=== PATIENT | female | born 1960 | race Caucasian/White ===

== ENCOUNTER 2022-10-08 17:07 | Inpatient (IN) | payer SELFPAY ==
[2022-10-08 17:56] LABS: #Lymphocytes 0.7 thou/uL (1.20-3.40); #Monocytes 0.7 thou/uL (0.11-0.59); %Eosinophils 0.3 % (0.0-10.0); %Lymphocytes 4.4 % (21.0-51.0); %Monocytes 4.5 % (0.0-10.0); %Neutrophils 90.8 % (42.0-75.0); Hemoglobin 14.6 g/dL (12.0-16.0); Mean Corpuscular HGB CONC 33.2 g/dL (32.0-36.0); Mean Corpuscular Hemoglobin 30.8 pg (27.0-31.0); Mean Corpuscular Volume 92.8 fl (78.0-98.0); Mean Platelet Volume 7.2 fL (7.4-10.4); Platelet Count 268 10x3/uL (130-400); RBC Distribution Width 11.4 % (11.5-14.5); Red Blood Cell (RBC) Count 4.74 mill/uL (4.20-5.40); White Blood Cell (WBC) Count 15.5 10x3/uL (4.8-10.8)
[2022-10-08 17:57] LABS: Actual Bicarbonate (HCO3v) 23 mEq/L (22-28); Base Excess -5.3 mEq/L (-2.0 to +3.0); Calcium, Ionized (venous) 1.16 mmol/L (1.16-1.32); Chloride (VBG) 90 mmol/L (98-106); Hemoglobin (Hb) 15.7 g/dL (11.7-16.0); Potassium (VBG) 4.76 mmol/L (3.70-5.30); Sodium 128.6 mmol/L (133-146); pH (venous) 7.24 (7.32-7.43)
[2022-10-08] MEDS ORDERED: Cefepime 2 GM VIAL ONE (18:01)
[2022-10-08 18:03] LABS: Bilirubin Negative (Negative); Blood, Urine Negative (Negative); Clarity Clear (Clear); Glucose, Urine (Dipstick) Greater than 1000 mg/dL (Negative); Ketone, Urine Trace mg/dL (Negative); Leukocyte Negative Leu/uL (Negative); Nitrite Negative (Negative); Protein, Urine (Dipstick) Negative (Neg-Trace); Specific Gravity, Urine 1.029 (1.002-1.036); Urobilinogen Normal mg/dL (Less than 2); pH, Urine 5.5 (5.0-9.0)
[2022-10-08 18:08] LABS: CK (CPK) 83 U/L (29-168); Lipase 56 U/L (8-78); Magnesium 1.9 mg/dL (1.6-2.6)
[2022-10-08 18:24] LABS: ALT (SGPT) 31 U/L (8-55); AST (SGOT) 25 U/L (5-34); Albumin 4.3 g/dL (3.4-4.8); Alkaline Phosphatase 157 U/L (40-110); Anion Gap 22 mmol/L (10-20); BUN (Urea Nitrogen) 12 mg/dL (9.8-20.1); Bilirubin, Total 0.7 mg/dL (0.2-1.2); Calc. Creatinine Clearance 0 mL/min (70-130); Carbon Dioxide 21 mmol/L (23-31); Chloride 92 mmol/L (98-107); Estimated GFR 41; Globulin 3.1 g/dL (2.4-3.5); Phosphorus 3.8 mg/dL (2.3-4.7); Potassium 4.8 mmol/L (3.5-5.1); Protein, Total 7.4 g/dL (5.8-8.1); Sodium 130 mmol/L (136-145)
[2022-10-08 18:35] LABS: Glucose 872 mg/dL (80-115)
[2022-10-08] MEDS ORDERED: INSULIN REGULAR IN 0.9 % NACL 100 UNIT/100 ML BAG ONE (18:38)
[2022-10-08] MEDS ORDERED: Vancomycin 1 GM/200 ML (FROZEN) BAG ONE (18:38)
[2022-10-08] MEDS ORDERED: Acetaminophen 500 MG TAB ONE (19:20)
[2022-10-08] MEDS ORDERED: Dextrose 5 %-0.45 % NaCl 1,000 ML IV PRN (19:51)
[2022-10-08] MEDS ORDERED: Dextrose 50% Abboject 50 ML SYRINGE SLOW IVP PRN (19:51)
[2022-10-08] MEDS ORDERED: NS 0.9% w/ 20 MEQ KCL 1,000 ML IV PRN ×2 (19:51)
[2022-10-08] MEDS ORDERED: Ondansetron PF 4 MG/2 ML Vial IVP PRN (19:51)
[2022-10-08] MEDS ORDERED: Sodium Chloride 0.9% 1,000 ML IV PRN ×2 (19:51)
[2022-10-08] MEDS ORDERED: Electrolyte Replacement Protocol 1 EACH IVPB ONE (19:51)
[2022-10-08] MEDS ORDERED: Ondansetron ODT 4 MG TAB PO PRN (19:51)
[2022-10-08] MEDS ORDERED: D5 1/2 NS w/20 mEq KCL 1,000 ML IV PRN (19:51)
[2022-10-08] MEDS ORDERED: Acetaminophen 325 MG TAB PO PRN (19:51)
[2022-10-08] MEDS ORDERED: Acetaminophen 650 MG Suppository PR PRN (19:51)
[2022-10-08] MEDS ORDERED: HUMULIN R 100 UNITS in Sodium Chloride 0.9% 100 ML IVPB SCH (20:00)
[2022-10-08] MEDS ORDERED: Electrolyte Replacement Protocol FS PRN (20:15)
[2022-10-08] MEDS ORDERED: Potassium Chloride 20 MEQ/100 ML PREMIX BAG ONE (20:39)
[2022-10-08] MEDS ORDERED: NS 0.9% w/ 20 MEQ KCL 1,000 ML ONE (20:41)
[2022-10-08 20:49] LABS: Anion Gap 18 mmol/L (10-20); BUN (Urea Nitrogen) 11 mg/dL (9.8-20.1); Calc. Creatinine Clearance 0 mL/min (70-130); Calcium 8.3 mg/dL (7.8-10.44); Carbon Dioxide 14 mmol/L (23-31); Chloride 98 mmol/L (98-107); Estimated GFR 59; Glucose 772 mg/dL (80-115); Potassium 4.2 mmol/L (3.5-5.1); Sodium 126 mmol/L (136-145)
[2022-10-08] MEDS ORDERED: Magnesium 2 GM/50 ML(in water) 2 GM in Premix Bag 1 BAG IVPB SCH (21:00)
[2022-10-08 21:23] LABS: Lactic Acid 2.1 mmol/L (0.5-2.2)
[2022-10-08 21:35] LABS: SARS-CoV-2 NAA Rapid Test Not Detected (NotDetected)
[2022-10-08 23:23] LABS: Glucose 518 mg/dL (80-115)
[2022-10-09 02:32] LABS: #Lymphocytes 1.7 thou/uL (1.20-3.40); #Monocytes 1.2 thou/uL (0.11-0.59); #Neutrophils 11.5 thou/uL (1.40-6.50); %Basophils 0.2 % (0.0-1.0); %Eosinophils 0.2 % (0.0-10.0); %Lymphocytes 11.5 % (21.0-51.0); %Monocytes 8.2 % (0.0-10.0); %Neutrophils 79.9 % (42.0-75.0); Hemoglobin 12.3 g/dL (12.0-16.0); Mean Corpuscular HGB CONC 34.5 g/dL (32.0-36.0); Mean Corpuscular Hemoglobin 31.7 pg (27.0-31.0); Mean Corpuscular Volume 91.9 fl (78.0-98.0); Mean Platelet Volume 7.1 fL (7.4-10.4); Platelet Count 209 10x3/uL (130-400); RBC Distribution Width 11.4 % (11.5-14.5); Red Blood Cell (RBC) Count 3.87 mill/uL (4.20-5.40); White Blood Cell (WBC) Count 14.4 10x3/uL (4.8-10.8)
[2022-10-09 02:53] LABS: Anion Gap 12 mmol/L (10-20); BUN (Urea Nitrogen) 10 mg/dL (9.8-20.1); Calc. Creatinine Clearance 41 mL/min (70-130); Calcium 7.7 mg/dL (7.8-10.44); Carbon Dioxide 14 mmol/L (23-31); Chloride 111 mmol/L (98-107); Estimated GFR 79; Potassium 3.9 mmol/L (3.5-5.1); Sodium 133 mmol/L (136-145)
[2022-10-09] MEDS ORDERED: Piperacillin/Tazobactam 3.375 GM in Sodium Chloride 0.9% 100 ML IVPB SCH ×2 (03:00→06:00)
[2022-10-09 03:12] LABS: Glucose 420 mg/dL (80-115)
[2022-10-09] MEDS: Cefepime 1 GM in Sodium Chloride 0.9% 100 ML IVPB SCH ×2 (05:15→18:05)
[2022-10-09 07:40] LABS: Anion Gap 9 mmol/L (10-20); BUN (Urea Nitrogen) 10 mg/dL (9.8-20.1); Calc. Creatinine Clearance 47 mL/min (70-130); Calcium 7.8 mg/dL (7.8-10.44); Carbon Dioxide 18 mmol/L (23-31); Chloride 115 mmol/L (98-107); Estimated GFR 93; Glucose 174 mg/dL (80-115); Potassium 4.1 mmol/L (3.5-5.1); Sodium 138 mmol/L (136-145)
[2022-10-09] MEDS ORDERED: Iopamidol-370 76% 500 ML 1 ML ONE (08:45)
[2022-10-09] MEDS ORDERED: Dextrose 5% in Water 1,000 ML IV PRN (10:34)
[2022-10-09] MEDS ORDERED: Dextrose 50% Abboject 50 ML SYRINGE SLOW IVP PRN (10:34)
[2022-10-09 11:04] VITALS: BMI 15.1
[2022-10-09] MEDS ORDERED: Insulin Glargine 30 UNITS/0.3 ML VIAL SC SCH (11:45)
[2022-10-09] MEDS: Lactated Ringer's 1,000 ML IV SCH (13:58)
[2022-10-09] MEDS: HumaLOG 300 UNITS/3 ML VIAL SC PRN ×2 (18:05→22:09)
[2022-10-09] MEDS: Atorvastatin Calcium 20 MG TAB PO SCH (20:17)
[2022-10-09] MEDS: Gabapentin 100 MG CAP PO SCH (20:17)
[2022-10-09] MEDS: Vancomycin HCl 750 MG in Sodium Chloride 0.9% 250 ML 250 ML IVPB SCH (21:00)
[2022-10-10] MEDS: Cefepime 1 GM in Sodium Chloride 0.9% 100 ML IVPB SCH ×2 (05:22→17:02)
[2022-10-10 05:27] LABS: #Eosinphils 0.1 thou/uL (0.0-0.7); #Lymphocytes 3.1 thou/uL (1.20-3.40); #Monocytes 0.9 thou/uL (0.11-0.59); %Basophils 0.4 % (0.0-1.0); %Eosinophils 0.7 % (0.0-10.0); %Lymphocytes 22.1 % (21.0-51.0); %Monocytes 6.3 % (0.0-10.0); %Neutrophils 70.6 % (42.0-75.0); Hemoglobin 11.8 g/dL (12.0-16.0); Mean Corpuscular Hemoglobin 31.9 pg (27.0-31.0); Mean Corpuscular Volume 93.7 fl (78.0-98.0); Mean Platelet Volume 7.1 fL (7.4-10.4); Platelet Count 220 10x3/uL (130-400); RBC Distribution Width 11.8 % (11.5-14.5); White Blood Cell (WBC) Count 14.1 10x3/uL (4.8-10.8)
[2022-10-10 05:53] LABS: ALT (SGPT) 55 U/L (8-55); AST (SGOT) 59 U/L (5-34); Albumin 2.4 g/dL (3.4-4.8); Alkaline Phosphatase 103 U/L (40-110); Anion Gap 8 mmol/L (10-20); BUN (Urea Nitrogen) 10 mg/dL (9.8-20.1); Bilirubin, Direct 0.2 mg/dL (0.1-0.3); Bilirubin, Total 0.4 mg/dL (0.2-1.2); Calc. Creatinine Clearance 65 mL/min (70-130); Calcium 7.9 mg/dL (7.8-10.44); Carbon Dioxide 17 mmol/L (23-31); Chloride 111 mmol/L (98-107); Estimated GFR 105; Glucose 84 mg/dL (80-115); Magnesium 2.8 mg/dL (1.6-2.6); Potassium 3.8 mmol/L (3.5-5.1); Protein, Total 4.7 g/dL (5.8-8.1); Sodium 132 mmol/L (136-145)
[2022-10-10] MEDS: Lactated Ringer's 1,000 ML IV SCH (09:33)
[2022-10-10] MEDS: Insulin Glargine 30 UNITS/0.3 ML VIAL SC SCH (09:34)
[2022-10-10] MEDS: Aspirin 81 mg Enteric Coated Tablet PO SCH (09:35)
[2022-10-10 10:11] LABS: Legionella Urinary Ag Negative (Negative); Strep pneumo Urine Ag NEGATIVE (NEGATIVE)
[2022-10-10] MEDS: HumaLOG 300 UNITS/3 ML VIAL SC PRN ×2 (11:09→17:02)
[2022-10-10] MEDS ORDERED: Furosemide 20 MG/2 ML VIAL SLOW IVP SCH ×2 (13:45→17:15)
[2022-10-10] MEDS: HYDROcodone/Acetaminophen 5/325 mg Tablet PO PRN (13:54)
[2022-10-10] MEDS: Vancomycin HCl 750 MG in Sodium Chloride 0.9% 250 ML 250 ML IVPB SCH (20:21)
[2022-10-10] MEDS: Gabapentin 100 MG CAP PO SCH (20:21)
[2022-10-10] MEDS: Atorvastatin Calcium 20 MG TAB PO SCH (20:22)
[2022-10-11] MEDS: Cefepime 1 GM in Sodium Chloride 0.9% 100 ML IVPB SCH ×2 (05:07→17:45)
[2022-10-11 06:29] LABS: #Eosinphils 0.1 thou/uL (0.0-0.7); #Lymphocytes 2.9 thou/uL (1.20-3.40); #Monocytes 0.8 thou/uL (0.11-0.59); #Neutrophils 6.6 thou/uL (1.40-6.50); %Basophils 0.2 % (0.0-1.0); %Eosinophils 1.1 % (0.0-10.0); %Lymphocytes 28.3 % (21.0-51.0); %Monocytes 7.3 % (0.0-10.0); Hemoglobin 12.8 g/dL (12.0-16.0); Mean Corpuscular HGB CONC 34.2 g/dL (32.0-36.0); Mean Corpuscular Volume 93.5 fl (78.0-98.0); Platelet Count 255 10x3/uL (130-400); RBC Distribution Width 12.1 % (11.5-14.5); Red Blood Cell (RBC) Count 3.99 mill/uL (4.20-5.40); White Blood Cell (WBC) Count 10.4 10x3/uL (4.8-10.8)
[2022-10-11 06:53] LABS: Anion Gap 9 mmol/L (10-20); BUN (Urea Nitrogen) 11 mg/dL (9.8-20.1); Calc. Creatinine Clearance 44 mL/min (70-130); Calcium 8.3 mg/dL (7.8-10.44); Carbon Dioxide 20 mmol/L (23-31); Chloride 106 mmol/L (98-107); Estimated GFR 86; Glucose 117 mg/dL (80-115); Magnesium 1.5 mg/dL (1.6-2.6); Potassium 3.9 mmol/L (3.5-5.1); Sodium 131 mmol/L (136-145)
[2022-10-11] MEDS ORDERED: Magnesium 2 GM/50 ML(in water) 2 GM in Premix Bag 1 BAG IVPB SCH (08:30)
[2022-10-11] MEDS: Insulin Glargine 30 UNITS/0.3 ML VIAL SC SCH (08:52)
[2022-10-11] MEDS: Aspirin 81 mg Enteric Coated Tablet PO SCH (08:53)
[2022-10-11] MEDS ORDERED: Lidocaine 1% (PF) 30 ML VIAL ONE (10:00)
[2022-10-11] MEDS ORDERED: FENTANYL 50 MCG/ML 1 ML VIAL ONE (11:17)
[2022-10-11] MEDS ORDERED: Midazolam HCl 2 mg/2 ml Vial ONE (11:17)
[2022-10-11] MEDS ORDERED: Iopamidol 370 76% 100 ML VIAL ONE (11:44)
[2022-10-11] MEDS ORDERED: Heparin 10,000 UNITS/ 10 ML VIAL ONE (12:11)
[2022-10-11] MEDS: HYDROcodone/Acetaminophen 5/325 mg Tablet PO PRN (13:33)
[2022-10-11 19:29] LABS: Vancomycin, Trough 7.7 ug/mL
[2022-10-11] MEDS: Vancomycin 1 GM in Premix Bag 1 BAG IVPB SCH (21:40)
[2022-10-11] MEDS: Gabapentin 100 MG CAP PO SCH (21:41)
[2022-10-11] MEDS: Atorvastatin Calcium 20 MG TAB PO SCH (21:41)
[2022-10-11] MEDS: HumaLOG 300 UNITS/3 ML VIAL SC PRN (21:42)
[2022-10-12] MEDS: Cefepime 1 GM in Sodium Chloride 0.9% 100 ML IVPB SCH ×2 (06:44→17:06)
[2022-10-12 06:56] LABS: #Eosinphils 0.1 thou/uL (0.0-0.7); #Lymphocytes 2.1 thou/uL (1.20-3.40); #Monocytes 0.8 thou/uL (0.11-0.59); #Neutrophils 7.5 thou/uL (1.40-6.50); %Basophils 0.1 % (0.0-1.0); %Eosinophils 0.8 % (0.0-10.0); %Monocytes 7.7 % (0.0-10.0); %Neutrophils 71.4 % (42.0-75.0); Hemoglobin 13.7 g/dL (12.0-16.0); Mean Corpuscular HGB CONC 33.7 g/dL (32.0-36.0); Mean Corpuscular Hemoglobin 31.6 pg (27.0-31.0); Mean Corpuscular Volume 93.7 fl (78.0-98.0); Mean Platelet Volume 6.5 fL (7.4-10.4); Platelet Count 289 10x3/uL (130-400); Red Blood Cell (RBC) Count 4.34 mill/uL (4.20-5.40); White Blood Cell (WBC) Count 10.6 10x3/uL (4.8-10.8)
[2022-10-12 07:03] LABS: Hemoglobin A1c Greater than 14.0 % (4.0-6.0)
[2022-10-12 07:16] LABS: Anion Gap 13 mmol/L (10-20); BUN (Urea Nitrogen) 9 mg/dL (9.8-20.1); Calc. Creatinine Clearance 47 mL/min (70-130); Calcium 8.7 mg/dL (7.8-10.44); Carbon Dioxide 19 mmol/L (23-31); Chloride 106 mmol/L (98-107); Estimated GFR 93; Glucose 103 mg/dL (80-115); Magnesium 1.9 mg/dL (1.6-2.6); Sodium 134 mmol/L (136-145)
[2022-10-12] MEDS ORDERED: Magnesium 2 GM/50 ML(in water) 2 GM in Premix Bag 1 BAG IVPB SCH (08:00)
[2022-10-12] MEDS: Insulin Glargine 30 UNITS/0.3 ML VIAL SC SCH (08:44)
[2022-10-12] MEDS: Aspirin 81 mg Enteric Coated Tablet PO SCH (08:45)
[2022-10-12] MEDS ORDERED: FLU VACC QS2022-23(6MOS UP)/PF 60 MCG/0.5 ML SYRINGE IM ONE (09:00)
[2022-10-12] MEDS: HumaLOG 300 UNITS/3 ML VIAL SC PRN ×3 (10:53→22:12)
[2022-10-12] MEDS: Vancomycin 1 GM in Premix Bag 1 BAG IVPB SCH (22:11)
[2022-10-12] MEDS: Atorvastatin Calcium 20 MG TAB PO SCH (22:12)
[2022-10-12] MEDS: Gabapentin 100 MG CAP PO SCH (22:12)
[2022-10-12] MEDS: Bisacodyl 10 MG SUPP PR PRN (23:29)
[2022-10-13] MEDS: Vancomycin 1 GM in Premix Bag 1 BAG IVPB SCH ×2 (00:24→20:48)
[2022-10-13 05:25] LABS: Bilirubin Negative (Negative); Blood, Urine Trace (Negative); Clarity Clear (Clear); Glucose, Urine (Dipstick) 500 mg/dL (Negative); Ketone, Urine Negative (Negative); Leukocyte Negative Leu/uL (Negative); Nitrite Negative (Negative); Protein, Urine (Dipstick) Negative (Neg-Trace); RBC/HPF 0-3 HPF (0-3); Specific Gravity, Urine 1.006 (1.002-1.036); Squamous Epithelial 0-3 HPF (0-3); Urobilinogen Normal mg/dL (Less than 2); WBC/HPF 0-3 HPF (0-3)
[2022-10-13 05:26] LABS: Bacteria/HPF 1+ HPF (None Seen)
[2022-10-13 05:29] LABS: #Eosinphils 0.1 thou/uL (0.0-0.7); #Monocytes 1.3 thou/uL (0.11-0.59); #Neutrophils 8.8 thou/uL (1.40-6.50); %Basophils 0.3 % (0.0-1.0); %Eosinophils 0.9 % (0.0-10.0); %Lymphocytes 16.4 % (21.0-51.0); %Monocytes 10.4 % (0.0-10.0); %Neutrophils 72.1 % (42.0-75.0); Hemoglobin 13.4 g/dL (12.0-16.0); Mean Corpuscular HGB CONC 33.9 g/dL (32.0-36.0); Mean Corpuscular Hemoglobin 31.6 pg (27.0-31.0); Mean Corpuscular Volume 93.3 fl (78.0-98.0); Mean Platelet Volume 6.6 fL (7.4-10.4); Platelet Count 302 10x3/uL (130-400); Red Blood Cell (RBC) Count 4.23 mill/uL (4.20-5.40); White Blood Cell (WBC) Count 12.2 10x3/uL (4.8-10.8)
[2022-10-13] MEDS: HumaLOG 300 UNITS/3 ML VIAL SC PRN ×3 (06:08→17:58)
[2022-10-13] MEDS: Cefepime 1 GM in Sodium Chloride 0.9% 100 ML IVPB SCH ×2 (06:09→17:22)
[2022-10-13 06:14] LABS: Chloride 100 mmol/L (98-107); Potassium 4.5 mmol/L (3.5-5.1); Sodium 128 mmol/L (136-145)
[2022-10-13 06:15] LABS: Calcium 8.7 mg/dL (7.8-10.44); Glucose 219 mg/dL (80-115)
[2022-10-13 06:17] LABS: Anion Gap 10 mmol/L (10-20); Carbon Dioxide 23 mmol/L (23-31)
[2022-10-13 06:19] LABS: Calc. Creatinine Clearance 40 mL/min (70-130); Estimated GFR 76
[2022-10-13 06:20] LABS: BUN (Urea Nitrogen) 15 mg/dL (9.8-20.1)
[2022-10-13] MEDS ORDERED: Magnesium 2 GM/50 ML(in water) 2 GM in Premix Bag 1 BAG IVPB SCH (08:00)
[2022-10-13] MEDS: Aspirin 81 mg Enteric Coated Tablet PO SCH (08:03)
[2022-10-13] MEDS: Insulin Glargine 30 UNITS/0.3 ML VIAL SC SCH (08:03)
[2022-10-13 19:21] LABS: Vancomycin, Trough 12.7 ug/mL
[2022-10-13] MEDS: Atorvastatin Calcium 20 MG TAB PO SCH (20:49)
[2022-10-13] MEDS: Gabapentin 100 MG CAP PO SCH (20:49)
[2022-10-14] MEDS: HYDROcodone/Acetaminophen 5/325 mg Tablet PO PRN (04:58)
[2022-10-14 04:59] LABS: #Eosinphils 0.2 thou/uL (0.0-0.7); #Lymphocytes 1.7 thou/uL (1.20-3.40); #Monocytes 1.4 thou/uL (0.11-0.59); #Neutrophils 10.1 thou/uL (1.40-6.50); %Basophils 0.2 % (0.0-1.0); %Eosinophils 1.2 % (0.0-10.0); %Lymphocytes 12.3 % (21.0-51.0); %Monocytes 10.7 % (0.0-10.0); %Neutrophils 75.6 % (42.0-75.0); Hemoglobin 13.6 g/dL (12.0-16.0); Mean Corpuscular HGB CONC 33.2 g/dL (32.0-36.0); Mean Corpuscular Hemoglobin 31.2 pg (27.0-31.0); Mean Platelet Volume 6.2 fL (7.4-10.4); Platelet Count 351 10x3/uL (130-400); RBC Distribution Width 12.1 % (11.5-14.5); Red Blood Cell (RBC) Count 4.37 mill/uL (4.20-5.40); White Blood Cell (WBC) Count 13.3 10x3/uL (4.8-10.8)
[2022-10-14] MEDS: Bisacodyl 10 MG SUPP PR PRN (05:00)
[2022-10-14] MEDS: Cefepime 1 GM in Sodium Chloride 0.9% 100 ML IVPB SCH (05:00)
[2022-10-14] MEDS: HumaLOG 300 UNITS/3 ML VIAL SC PRN ×2 (05:01→11:37)
[2022-10-14 05:27] LABS: Anion Gap 12 mmol/L (10-20); BUN (Urea Nitrogen) 16 mg/dL (9.8-20.1); Calc. Creatinine Clearance 37 mL/min (70-130); Calcium 9.4 mg/dL (7.8-10.44); Carbon Dioxide 24 mmol/L (23-31); Chloride 100 mmol/L (98-107); Estimated GFR 69; Glucose 213 mg/dL (80-115); Magnesium 1.9 mg/dL (1.6-2.6); Potassium 4.5 mmol/L (3.5-5.1); Sodium 131 mmol/L (136-145)
[2022-10-14] MEDS ORDERED: Magnesium 2 GM/50 ML(in water) 2 GM in Premix Bag 1 BAG IVPB SCH (08:00)
[2022-10-14] MEDS: Aspirin 81 mg Enteric Coated Tablet PO SCH (08:02)
[2022-10-14] MEDS: Insulin Glargine 30 UNITS/0.3 ML VIAL SC SCH (08:03)
[2022-10-14] MEDS ORDERED: Vancomycin HCl 500 MG in Sodium Chloride 0.9% 100 ML IVPB SCH (09:00)
[2022-10-14] MEDS ORDERED: Cephalexin 250 MG CAP PO SCH (16:15)
[2022-10-14] MEDS ORDERED: Dextrose 5% in Water 1,000 ML IV PRN (16:38)
[2022-10-14] MEDS ORDERED: Insulin Regular 300 UNITS/3 ML VIAL SC PRN ×2 (16:38→16:45)
[2022-10-14] MEDS ORDERED: Dextrose 50% Abboject 50 ML SYRINGE SLOW IVP PRN (16:38)
[2022-10-14] MEDS: Insulin Regular 300 UNITS/3 ML VIAL SC PRN (16:50)
[2022-10-14 19:04] LABS: Clarity Slightly Cloudy (Clear)
[2022-10-14 19:05] LABS: Leukocyte Moderate (Negative); Nitrite Negative (Negative); Specific Gravity, Urine 1.015 (1.002-1.036)
[2022-10-14 19:06] LABS: Bilirubin Negative (Negative); Glucose, Urine (Dipstick) Negative (Negative); Ketone, Urine 5 mg/dL (Negative); Protein, Urine (Dipstick) 100 mg/dL (Neg-Trace); Urobilinogen 0.2 mg/dL (Less than 2)
[2022-10-14 19:07] LABS: Bacteria/HPF None Seen HPF (None Seen); Blood, Urine Large (Negative); RBC/HPF Greater than 50 HPF (0-3); Squamous Epithelial None Seen HPF (0-3)
[2022-10-14] MEDS: Gabapentin 100 MG CAP PO SCH (21:02)
[2022-10-14] MEDS: Atorvastatin Calcium 20 MG TAB PO SCH (21:02)
[2022-10-14] MEDS: Cephalexin 250 MG CAP PO SCH (21:02)
[2022-10-15] MEDS: Cephalexin 250 MG CAP PO SCH ×2 (04:48→16:49)
[2022-10-15] MEDS: HYDROcodone/Acetaminophen 5/325 mg Tablet PO PRN (04:48)
[2022-10-15] MEDS: Insulin Regular 300 UNITS/3 ML VIAL SC PRN ×2 (04:49→12:46)
[2022-10-15 05:29] LABS: #Basophils 0.1 thou/uL (0.0-0.2); #Eosinphils 0.2 thou/uL (0.0-0.7); #Lymphocytes 2.3 thou/uL (1.20-3.40); #Monocytes 1.2 thou/uL (0.11-0.59); #Neutrophils 8.3 thou/uL (1.40-6.50); %Basophils 0.4 % (0.0-1.0); %Eosinophils 1.9 % (0.0-10.0); %Lymphocytes 19.1 % (21.0-51.0); %Monocytes 9.6 % (0.0-10.0); %Neutrophils 68.9 % (42.0-75.0); Hemoglobin 11.5 g/dL (12.0-16.0); Mean Corpuscular HGB CONC 33.2 g/dL (32.0-36.0); Mean Corpuscular Hemoglobin 31.5 pg (27.0-31.0); Mean Corpuscular Volume 94.9 fl (78.0-98.0); Mean Platelet Volume 6.3 fL (7.4-10.4); Platelet Count 309 10x3/uL (130-400); RBC Distribution Width 12.2 % (11.5-14.5); Red Blood Cell (RBC) Count 3.65 mill/uL (4.20-5.40)
[2022-10-15 05:48] LABS: Anion Gap 9 mmol/L (10-20); BUN (Urea Nitrogen) 14 mg/dL (9.8-20.1); Calc. Creatinine Clearance 42 mL/min (70-130); Calcium 9.1 mg/dL (7.8-10.44); Carbon Dioxide 28 mmol/L (23-31); Chloride 98 mmol/L (98-107); Estimated GFR 80; Glucose 233 mg/dL (80-115); Magnesium 1.6 mg/dL (1.6-2.6); Potassium 4.6 mmol/L (3.5-5.1); Sodium 130 mmol/L (136-145)
[2022-10-15] MEDS ORDERED: Magnesium 2 GM/50 ML(in water) 2 GM in Premix Bag 1 BAG IVPB SCH (08:00)
[2022-10-15] MEDS ORDERED: Insulin Glargine 30 UNITS/0.3 ML VIAL SC SCH (09:00)
[2022-10-15] MEDS ORDERED: cefTRIAXone\\ROCEPHIN 1 GM in Sodium Chloride 0.9% 100 ML IVPB SCH (09:00)
[2022-10-15] MEDS: Aspirin 81 mg Enteric Coated Tablet PO SCH (09:54)
[2022-10-15] MEDS ORDERED: Magnesium Oxide 400 MG TAB PO SCH ×2 (11:00→21:00)
[2022-10-15 12:13] VITALS: BP 98/65; TEMP 98.9
== END 2022-10-15 17:00 | disposition home or self-care (01) | DRG 853 ==
LOC: ERS 17:07 → IMCU/EMU 18:51 → MSONC 10-09 16:50
PROVIDERS: ADMIT Internal Medicine; ATTEND Internal Medicine
PROC: 3E03329 Introduction of Other Anti-infective into Peripheral Vein, Percutaneous Approach (ICD-10-PCS; 2022-10-08)
PROC: 047K34Z Dilation of Right Femoral Artery with Drug-eluting Intraluminal Device, Percutaneous Approach (ICD-10-PCS; principal; 2022-10-11)
PROC: 047D34Z Dilation of Left Common Iliac Artery with Drug-eluting Intraluminal Device, Percutaneous Approach (ICD-10-PCS; 2022-10-11)
DX: A41.9 Sepsis, unspecified organism (principal); E11.10 Type 2 diabetes mellitus with ketoacidosis without coma; I50.33 Acute on chronic diastolic (congestive) heart failure; J18.9 Pneumonia, unspecified organism; E11.52 Type 2 diabetes mellitus with diabetic peripheral angiopathy with gangrene; L03.116 Cellulitis of left lower limb; N17.9 Acute kidney failure, unspecified; L03.115 Cellulitis of right lower limb; E44.0 Moderate protein-calorie malnutrition; Z68.1 Body mass index [BMI] 19.9 or less, adult; R65.20 Severe sepsis without septic shock; F17.210 Nicotine dependence, cigarettes, uncomplicated; Z20.822 Contact with and (suspected) exposure to COVID-19; E11.621 Type 2 diabetes mellitus with foot ulcer; I11.0 Hypertensive heart disease with heart failure; L97.529 Non-pressure chronic ulcer of other part of left foot with unspecified severity; K59.00 Constipation, unspecified; Z79.82 Long term (current) use of aspirin; Z79.899 Other long term (current) drug therapy; Z79.84 Long term (current) use of oral hypoglycemic drugs
CPT/HCPCS: 36415; 36416; 37221; 51701; 71045; 74176; 75625; 75635; 80048; 80053; 80076; 80202; 81001; 81003; 82010; 82550; 82805; 83036; 83605; 83690; 83735; 83880; 84100; 84145; 85025; 85347; 87081; 87086; 87449; 87811; 87899; 93005; 93306; 93923; 96365; 96366; 96368; 97139; C1725; C1758; C1769; C1887; C1894; J0692; J1644; J1650; J1815; J1940; J2001; J2250; J2543; J3010; J3370; J3370-JW; J3475; J3480; J3490; J7050; J7120; Q9967; U0002

== ENCOUNTER 2022-10-18 16:41 | Emergency (ER) | payer OTHER, SELFPAY ==
[2022-10-18] MEDS ORDERED: Ibuprofen 200 MG TAB ONE (20:12)
== END 2022-10-18 20:05 | disposition home or self-care (01) ==
LOC: ERS 16:41
DX: N89.8 Other specified noninflammatory disorders of vagina (principal); E11.9 Type 2 diabetes mellitus without complications; F17.210 Nicotine dependence, cigarettes, uncomplicated; Z79.82 Long term (current) use of aspirin; Z79.899 Other long term (current) drug therapy; Z79.4 Long term (current) use of insulin
CPT/HCPCS: 99283

== ENCOUNTER 2022-11-26 18:36 | Emergency (ER) | payer OTHER ==
[~2022-11-26 18:36] MED LIST: Iopamidol-370 76% 500 ML MDV (1 ML CHARGE) ONE
[2022-11-26 19:01] LABS: Hemoglobin 11.6 g/dL (12.0-16.0); Mean Corpuscular HGB CONC 34.2 g/dL (32.0-36.0); Mean Corpuscular Hemoglobin 31.4 pg (27.0-31.0); Mean Corpuscular Volume 91.8 fl (78.0-98.0); Mean Platelet Volume 6.5 fL (7.4-10.4); Platelet Count 410 10x3/uL (130-400); RBC Distribution Width 12.6 % (11.5-14.5); Red Blood Cell (RBC) Count 3.71 mill/uL (4.20-5.40); White Blood Cell (WBC) Count 30.4 10x3/uL (4.8-10.8)
[2022-11-26 19:15] LABS: INR-International Normal Ratio 1.2; PTT 35.3 sec (22.9-36.1); Prothrombin Time 15.7 sec (12.0-14.7)
[2022-11-26 19:18] LABS: Band 33 % (5-11); Lymphocytes 2 % (21-51); MDiff Complete? YES; Monocytes 4 % (0-10); Neutrophil 61 % (42-75); Platelet Morphology Comment Appears Increased; Polychromasia SLIGHT = 2-3 cells (100X) (0-2/hpf); Toxic Granulation SLIGHT; Vacuoles SLIGHT
[2022-11-26 19:20] LABS: ALT (SGPT) 19 U/L (8-55); AST (SGOT) 37 U/L (5-34); Alkaline Phosphatase 185 U/L (40-110); Anion Gap 16 mmol/L (10-20); BUN (Urea Nitrogen) 32 mg/dL (9.8-20.1); Bilirubin, Total 0.4 mg/dL (0.2-1.2); Calc. Creatinine Clearance 0 mL/min (70-130); Calcium 9.9 mg/dL (7.8-10.44); Carbon Dioxide 18 mmol/L (23-31); Chloride 99 mmol/L (98-107); Estimated GFR 43; Globulin 4.4 g/dL (2.4-3.5); Glucose 129 mg/dL (80-115); Potassium 5.1 mmol/L (3.5-5.1); Protein, Total 7.4 g/dL (5.8-8.1); Sodium 128 mmol/L (136-145)
[2022-11-26] MEDS ORDERED: Cefepime 2 GM VIAL ONE (19:47)
[2022-11-26] MEDS ORDERED: Vancomycin 1 GM/200 ML (FROZEN) BAG ONE (20:08)
[2022-11-26] MEDS ORDERED: Clindamycin/D5W 900 mg/50 ml Premix Bag ONE (21:21)
[2022-11-26] MEDS ORDERED: Morphine 2 MG/ML VIAL ONE (21:27)
[2022-11-26] MEDS ORDERED: NOREPINEPHRINE 8 MG/250 ML-D5W 250 ML ONE (21:56)
== END 2022-11-27 00:44 | disposition short-term general hospital (02) ==
LOC: ERS 18:36
DX: A41.9 Sepsis, unspecified organism (principal); I96 Gangrene, not elsewhere classified; E11.9 Type 2 diabetes mellitus without complications
CPT/HCPCS: 71045; 75635; 80053; 83605; 83880; 84484; 85025; 85610; 85730; 86140; 87040; 93005; 96361; 96365; 96367; 96375; J0692; J2272; J3370-JW; J3490; Q9967